=== PATIENT | male | born 1980 | race Caucasian/White ===

== ENCOUNTER 2019-11-15 21:08 | Emergency (ER) | payer OTHER ==
[~2019-11-15] VITALS: Ht 175.3 cm; Wt 108.5 kg
[2019-11-15 21:39] VITALS: BP 143/92
[2019-11-15] MEDS ORDERED: predniSONE 20 MG TABLET ONE (21:54)
[2019-11-15] MEDS ORDERED: HYDROcodone/APAP 7.5/325MG 1 TAB TABLET ONE (21:54)
[2019-11-15] MEDS ORDERED: PRED20TA PO (21:55)
[2019-11-15] MEDS ORDERED: HYDR-3165 PO (21:55)
--- NOTE | 2019-11-15 21:55 | PHYS DOC ---
Adult General Chief Complaint Chief Complaint: LOWER BACK PAIN OR INJURY [facility] 39-year-old male presents with upper lumbar back pain. The patient is a long history of pain. He has bulging disks. He sees pain management at . He had injections 2 weeks ago. He was feeling much better for a little over a week. Over the last 3 days, he has had increasing pain again. He continues to take his Flexeril but it is not helping. He didn't go to physical therapy today and since that time his pain has been more difficult to bear. The patient cannot take NSAIDs due to gastric ulcers. He does take Tylenol. He is getting some radiation of the pain down the backs of both legs. He denies numbness or loss of sensation. He denies any trauma or falls. Review of Systems Review of Systems Constitutional: Denies fever or chills [] Eyes: Denies change in visual acuity, redness, or eye pain [] HENT: Denies nasal congestion or sore throat [] Respiratory: Denies cough or shortness of breath [] Cardiovascular: No additional information not addressed in HPI [] GI: Denies abdominal pain, nausea, vomiting, bloody stools or diarrhea [] : Denies dysuria or hematuria [] Musculoskeletal: Back pain[] Integument: Denies rash or skin lesions [] Neurologic: Denies headache, focal weakness or sensory changes [] Endocrine: Denies polyuria or polydipsia [] All other systems were reviewed and found to be within normal limits, except as documented in this note. Physical Exam Physical Exam Constitutional: Well developed, well nourished, no acute distress, non-toxic appearance. [] HENT: Normocephalic, atraumatic, bilateral external ears normal, oropharynx moist, no oral exudates, nose normal. [] Eyes: PERRLA, EOMI, conjunctiva normal, no discharge. [] Neck: Normal range of motion, no tenderness, supple, no stridor. [] Cardiovascular:Heart rate regular rhythm, no murmur [] Lungs & Thorax: Bilateral breath sounds clear to auscultation [] Abdomen: Bowel sounds normal, soft, no tenderness, no masses, no pulsatile masses. [] Skin: Warm, dry, no erythema, no rash. [] Back: Mild tenderness and muscle spasm of the paraspinal muscles of the upper lumbar[] Extremities: No tenderness, no cyanosis, no clubbing, ROM intact, no edema. [] Neurologic: Alert and oriented X 3, normal motor function, normal sensory function, no focal deficits noted. [] Psychologic: Affect normal, judgement normal, mood normal. [] EKG EKG [] Radiology/Procedures Radiology/Procedures [] Course & Med Decision Making Course & Med Decision Making Pertinent Labs and Imaging studies reviewed. (See chart for details) I reviewed the narcotic tracking database and the patient does not have a record. Does seem to be uncomfortable. I will treat him with Cameron in the ED as well as prednisone orally. I will discharge him with a short course of Cameron 5/325 as well as 3 more days of prednisone. He will follow-up with this pain management physicians next week. He is stable for discharge at this time. [] Dragon Disclaimer Dragon Disclaimer This electronic medical record was generated, in whole or in part, using a voice recognition dictation system. Departure Departure: Impression: Primary Impression: Lumbar back pain with radiculopathy affecting lower extremity Disposition: 01 HOME, SELF-CARE Condition: STABLE Referrals: SAUL WOLFE DO (PCP) Patient Instructions: Low Back Strain with Rehab-[facility] Scripts Prednisone (PREDNISONE) 20 Mg Tablet 60 MG PO DAILY for lumbar pain with radiculopathy for 3 Days, #9 TAB Prov: JAMILA MORRIS DO 11/15/19 Hydrocodone Bit/Acetaminophen (NORCO 5-325 TABLET) 1 Each Tablet 1 TAB PO PRN Q6HRS PRN for PAIN, #14 TAB 0 Refills Prov: JAMILA MORRIS DO 11/15/19 JAMILA MORRIS DO Nov 15, 2019 21:55
[2019-11-15] MEDS ORDERED: HYDROcodone/APAP 7.5/325MG 1 TAB TABLET PO ONE (22:00)
[2019-11-15] MEDS ORDERED: predniSONE 20 MG TABLET PO ONE (22:00)
== END 2019-11-15 22:05 | disposition home or self-care (01) ==
LOC: ER 21:08
DX: M54.16 Radiculopathy, lumbar region (principal)
CPT/HCPCS: 99283; J7512

== ENCOUNTER 2020-05-29 07:29 | Emergency (ER) | payer OTHER ==
[~2020-05-29] VITALS: Ht 175.3 cm; Wt 111.5 kg
[2020-05-29 07:29] VITALS: BP 137/87
[~2020-05-29 07:29] MED LIST: HYDR-3165 PO; PRED20TA PO
[2020-05-29] MEDS ORDERED: NAPR500T8 PO (08:00)
--- NOTE | 2020-05-29 08:00 | PHYS DOC ---
Past History Past Medical History: Arthritis, GERD, Hypertension Additional Past Medical Histor: 3 buling Disc T11-L4, anular tear, DJD Additional Past Surgical Histo: Right shoulder repair Alcohol Use: None General Adult EDM: Chief Complaint: UPPER EXTREMITY PAIN HPI: HPI: The history was obtained from the patient. Patient is a 39-year-old male with PMH arthritis who presents with a chief complaint of right elbow pain and swelling. Patient states he began developing some minor right elbow pain yesterday. He states this morning he woke up and noted to be somewhat red and swollen. Denies any trauma or injury. 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 Denies any IV drug use. Denies any drainage from the elbow. Denies any trauma or injury. Denies shoulder or wrist pain. States the pain is aching in nature and constant. States it is made slightly worse with movement. No other complaints. Review of Systems: Review of Systems: Constitutional: Denies fever or chills Eyes: Denies change in visual acuity HENT: Denies nasal congestion or sore throat Respiratory: Denies cough or shortness of breath Cardiovascular: Denies chest pain or edema GI: Denies abdominal pain, nausea, vomiting, bloody stools or diarrhea : Denies dysuria Musculoskeletal: Positive for elbow pain Integument: Denies rash Neurologic: Denies headache, focal weakness or sensory changes Endocrine: Denies polyuria or polydipsia Lymphatic: Denies swollen glands Psychiatric: Denies depression or anxiety Heart Score: Risk Factors: Risk Factors: DM, Current or recent (<one month) smoker, HTN, HLP, family history of CAD, obesity. Risk Scores: Score 0 - 3: 2.5% MACE over next 6 weeks - Discharge Home Score 4 - 6: 20.3% MACE over next 6 weeks - Admit for Clinical Observation Score 7 - 10: 72.7% MACE over next 6 weeks - Early Invasive Strategies Physical Exam: PE: Constitutional: Well developed, well nourished, no acute distress, non-toxic appearance. [] HENT: Normocephalic, atraumatic, bilateral external ears normal, oropharynx moist, no oral exudates, nose normal. [] Eyes: PERRLA, EOMI, conjunctiva normal, no discharge. [] Neck: Normal range of motion, no tenderness, supple, no stridor. [] Cardiovascular:Heart rate regular rhythm, no murmur [] Lungs & Thorax: Bilateral breath sounds clear to auscultation [] Abdomen: soft, no tenderness, no masses, no pulsatile masses. [] Skin: Warm, dry, no erythema, no rash. [] Back: No tenderness, no CVA tenderness. [] Extremities: Right elbow with inflamed olecranon bursa. Mild increase in warmth. Mild overlying erythema. Mild palpable area of fluctuance. No shoulder or wrist tenderness. Plus 2 out of 4 radial pulse on the right. Cardinal hand movements intact. No limitations in active or passive range of motion. Neurologic: Alert and oriented X 3, normal motor function, normal sensory function, no focal deficits noted. [] Psychologic: Affect normal, judgement normal, mood normal. [] EKG: EKG: [] Radiology/Procedures: Radiology/Procedures: [] Course & Med Decision Making: Course & Med Decision Making Pertinent Labs and Imaging studies reviewed. (See chart for details) [] Patient is a well-appearing 39-year-old male who presents with complaint of right elbow swelling tenderness. Atraumatic in nature. Clinically patient has signs and symptoms concerning for olecranon bursitis. No signs of overlying infection. Low suspicion for septic joint as he does have full active and passive range of motion without difficulty. Plain film imaging will be deferred as there is no history of trauma or injury. He was counseled on appropriate supportive care measures at home. Instructed to follow-up with his primary care physician in the next 2 to 3 days. Return precautions discussed and understood. Stable for discharge home. Palma Disclaimer: Palma Disclaimer: This electronic medical record was generated, in whole or in part, using a voice recognition dictation system. Departure Departure: Impression: Primary Impression: Olecranon bursitis Qualified Codes: M70.21 - Olecranon bursitis, right elbow Disposition: 01 HOME/RESIDENCE PRIOR TO ADM Condition: STABLE Referrals: SAUL WOLFE DO (PCP) Patient Instructions: Olecranon Bursitis Scripts Naproxen (NAPROXEN) 500 Mg Tablet.dr 1 TAB PO BID for pain for 10 Days, #20 TAB 2 Refills Prov: OSWALD HARVEY DO 05/29/20 Justification of Admission: Justification of Admission: Justification of Admission Dx: N/A OSWALD HARVEY DO May 29, 2020 08:00
== END 2020-05-29 08:05 | disposition home or self-care (01) ==
LOC: ER 07:29
DX: M70.21 Olecranon bursitis, right elbow (principal); M19.90 Unspecified osteoarthritis, unspecified site; K21.9 Gastro-esophageal reflux disease without esophagitis; I10 Essential (primary) hypertension
CPT/HCPCS: 99282

== ENCOUNTER 2020-12-21 18:37 | Emergency (ER) | payer OTHER ==
[~2020-12-21] VITALS: Ht 182.9 cm; Wt 111.5 kg
[~2020-12-21 18:37] MED LIST changes: +NAPR500T8 PO
--- NOTE | 2020-12-21 18:41 | PHYS DOC ---
Past History Past Medical History: Arthritis, GERD, Hypertension Additional Past Medical Histor: 3 buling Disc T11-L4, anular tear, DJD Additional Past Surgical Histo: Right shoulder repair Alcohol Use: None General Adult HPI: HPI: ".. I caught this finger on brick plate.. and ripped it open... 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 4th dosal 2nd joint finger injury. Patient's tetanus is less than 5 years. Patient is right-hand dominant. Distal neurovascular is equal to other fingers on right hand and left hand. Pt. follows with Dr. Shafer at [facility]. No recent travel. No specific ill contacts. Normally healthy. Patient does have a history of past gastric ulcers due to NSAIDs. Does have history of lumbar degenerative joint changes and disc disease. Patient does have history of periodic episodes of sciatica. No history of immunosuppression. Review of Systems: Review of Systems: Constitutional: Denies fever or chills Eyes: Denies change in visual acuity HENT: Denies nasal congestion or sore throat Respiratory: Denies cough or shortness of breath Cardiovascular: Denies chest pain or edema GI: Denies abdominal pain, nausea, vomiting, bloody stools or diarrhea : Denies dysuria Musculoskeletal: Denies back pain or joint pain Integument: Denies rash. Complains of laceration ring finger right Neurologic: Denies headache, focal weakness or sensory changes Endocrine: Denies polyuria or polydipsia Lymphatic: Denies swollen glands Psychiatric: Denies depression or anxiety Family History: Family History: Noncontributory to presentation Current Medications: Current Meds: See nursing for home meds Allergies: Allergies: Allergies Coded Allergies Type Severity Reaction Last Updated Verified NSAIDS (Non-Steroidal Anti-Inflamma Allergy Unknown GERD 05/29/20 Yes Physical Exam: PE: Constitutional: Well developed, well nourished, no acute distress, non-toxic appearance. [] HENT: Normocephalic, atraumatic, bilateral external ears normal, oropharynx moist, no oral exudates, nose normal. [] Eyes: PERRLA, EOMI, conjunctiva normal, no discharge. [] Neck: Normal range of motion, no tenderness, supple, no stridor. [] Cardiovascular:Heart rate regular rhythm, no murmur [] Lungs & Thorax: Bilateral breath sounds clear to auscultation [] Abdomen: Bowel sounds normal, soft, no tenderness, no masses, no pulsatile masses. [] Skin: Warm, dry, no erythema, no rash. [] Laceration to right fourth ring finger dorsal. Back: No tenderness, no CVA tenderness. [] Extremities: No tenderness, no cyanosis, no clubbing, ROM intact, no edema. [] Neurologic: Alert and oriented X 3, normal motor function, normal sensory function, no focal deficits noted. [] Psychologic: Affect normal, judgement normal, mood normal. [] EKG: EKG: [] Radiology/Procedures: Radiology/Procedures: [] Heart Score: C/O Chest Pain: N/A Risk Factors: Risk Factors: DM, Current or recent (<one month) smoker, HTN, HLP, family history of CAD, obesity. Risk Scores: Score 0 - 3: 2.5% MACE over next 6 weeks - Discharge Home Score 4 - 6: 20.3% MACE over next 6 weeks - Admit for Clinical Observation Score 7 - 10: 72.7% MACE over next 6 weeks - Early Invasive Strategies Course & Med Decision Making: Course & Med Decision Making Pertinent Labs and Imaging studies reviewed. (See chart for details) Procedure note- options of treatment discussed with patient.-Elects suturing with Vicryl. Patient's finger cleaned with saline and Betadine. Patient did prolonged washing under tap water with soap and water. Injected 2% lidocaine digital block and localized injection at laceration site. Then scrubbed laceration with surgical brush. Lightly trimmed edge of laceration to remove abraded tissue. Irrigated with a liter of normal saline under pressure and range of motion.. Close laceration with Vicryl 4-0 x6 simple sutures. Applied back to duration to wound and dressing. Patient keep laceration clean and dry. If it becomes wet remove dressing immediately. May wear current dressing for the next 3 days. However becomes wet must be removed immediately. After removal of this dressing patient to apply Polysporin 4 times a day. Patient follow-up primary care. Patient monitor for infection. Patient return if any concerns. Impression: 1. 2 cm Laceration Rt. 4 th finger [] Palma Disclaimer: Palma Disclaimer: This electronic medical record was generated, in whole or in part, using a voice recognition dictation system. Departure Departure: Referrals: SAUL WOLFE DO (PCP) Palma Disclaimer This chart was dictated in whole or in part using Voice Recognition software in a busy, high-work load, and often noisy Emergency Department environment. It may contain unintended and wholly unrecognized errors or omissions. SHELTON WERNER MD Dec 21, 2020 18:41
[2020-12-21] MEDS ORDERED: LIDOCAINE 2% 20 ML VIAL. ONE (18:48)
[2020-12-21] MEDS ORDERED: LIDOCAINE 2% 20 ML VIAL. IJ ONE (19:00)
[2020-12-21] MEDS ORDERED: BACITRACIN ZINC TOPICAL OINT PACKET. TP ONE (19:00)
[2020-12-21 19:15] VITALS: BP 142/92
== END 2020-12-21 19:45 | disposition home or self-care (01) ==
LOC: ER 18:37
DX: S61.214A Laceration without foreign body of right ring finger without damage to nail, initial encounter (principal); K21.9 Gastro-esophageal reflux disease without esophagitis; I10 Essential (primary) hypertension; Z88.8 Allergy status to other drugs, medicaments and biological substances; W23.0XXA Caught, crushed, jammed, or pinched between moving objects, initial encounter; Y93.89 Activity, other specified; Y92.89 Other specified places as the place of occurrence of the external cause; Y99.8 Other external cause status
CPT/HCPCS: 12001; 99283; J2001

== ENCOUNTER 2021-02-11 04:58 | Emergency (ER) | payer OTHER ==
--- NOTE | 2021-02-22 07:41 | PHYS DOC ---
Past History Past Medical History: Arthritis, GERD, Hypertension Additional Past Medical Histor: 3 buling Disc T11-L4, anular tear, DJD Past Surgical History: Other Additional Past Surgical Histo: Right shoulder repair Alcohol Use: None General Adult HPI: HPI: ".. I get back spasms.. I usually take some muscle relaxers like Robaxin.....but that does not seem to be helping..." Patient is a 40 year old male who presents with mid back pain and some muscle spasms in T-7 maru. Patient states he had no relief of pain after taking T3's and Robaxin. Review of Systems: Review of Systems: Constitutional: Denies fever or chills Eyes: Denies change in visual acuity HENT: Denies nasal congestion or sore throat Respiratory: Denies cough or shortness of breath Cardiovascular: Denies chest pain or edema GI: Denies abdominal pain, nausea, vomiting, bloody stools or diarrhea : Denies dysuria Musculoskeletal: Complains of mid back pain and spasm or joint pain Integument: Denies rash Neurologic: Denies headache, focal weakness or sensory changes Endocrine: Denies polyuria or polydipsia Lymphatic: Denies swollen glands Psychiatric: Denies depression or anxiety Family History: Family History: Noncontributory presentation Allergies: Allergies: Allergies Coded Allergies Type Severity Reaction Last Updated Verified NSAIDS (Non-Steroidal Anti-Inflamma Allergy Unknown GERD 05/29/20 Yes Physical Exam: PE: Constitutional: Well developed, well nourished, no acute distress, non-toxic appearance. [] HENT: Normocephalic, atraumatic, bilateral external ears normal, oropharynx moist, no oral exudates, nose normal. [] Eyes: PERRLA, EOMI, conjunctiva normal, no discharge. [] Neck: Normal range of motion, no tenderness, supple, no stridor. [] Cardiovascular:Heart rate regular rhythm, no murmur [] Lungs & Thorax: Bilateral breath sounds clear to auscultation [] Abdomen: Bowel sounds normal, soft, no tenderness, no masses, no pulsatile masses. [] Skin: Warm, dry, no erythema, no rash. [] Back: Mid back tenderness and muscle spasm, no specific CVA tenderness. [] Extremities: No tenderness, no cyanosis, no clubbing, ROM intact, no edema. Scar right shoulder Neurologic: Alert and oriented X 3, normal motor function, normal sensory function, no focal deficits noted. [] Psychologic: Affect normal, judgement normal, mood normal. [] EKG: EKG: [] Radiology/Procedures: Radiology/Procedures: [] Heart Score: C/O Chest Pain: N/A Risk Factors: Risk Factors: DM, Current or recent (<one month) smoker, HTN, HLP, family history of CAD, obesity. Risk Scores: Score 0 - 3: 2.5% MACE over next 6 weeks - Discharge Home Score 4 - 6: 20.3% MACE over next 6 weeks - Admit for Clinical Observation Score 7 - 10: 72.7% MACE over next 6 weeks - Early Invasive Strategies Course & Med Decision Making: Course & Med Decision Making Pertinent Labs and Imaging studies reviewed. (See chart for details) Patient use ice packs as needed. Gentle massage. Take Tylenol as needed for pain. Follow-up with [facility]. Return if any concerns. Impression: 1. Trapezius spasm [] Palma Disclaimer: Palma Disclaimer: This electronic medical record was generated, in whole or in part, using a voice recognition dictation system. Departure Departure: Impression: Primary Impression: Muscle spasm Disposition: HOME / SELF CARE / HOMELESS Condition: GUARDED Referrals: SAUL WOLFE DO (PCP) Palma Disclaimer This chart was dictated in whole or in part using Voice Recognition software in a busy, high-work load, and often noisy Emergency Department environment. It may contain unintended and wholly unrecognized errors or omissions. SHELTON WERNER MD Feb 22, 2021 07:41
== END 2021-02-11 05:30 | disposition home or self-care (01) ==
LOC: ER 04:58
DX: M62.830 Muscle spasm of back (principal); M54.89 Other dorsalgia; M19.90 Unspecified osteoarthritis, unspecified site; K21.9 Gastro-esophageal reflux disease without esophagitis; I10 Essential (primary) hypertension; Z88.6 Allergy status to analgesic agent
CPT/HCPCS: 99281; 99282

== ENCOUNTER 2021-05-04 11:18 | Emergency (ER) | payer OTHER ==
[~2021-05-04] VITALS: Ht 182.9 cm; Wt 111.5 kg
[2021-05-04 11:46] VITALS: BP 160/97
[2021-05-04] MEDS ORDERED: KETOROLAC 15 MG/ML VIAL. IM ONE (12:15)
[2021-05-04] MEDS ORDERED: CYCLOBENZAPRINE 10 MG TABLET. PO ONE (12:15)
--- NOTE | 2021-05-04 12:22 | PHYS DOC ---
Past History Past Medical History: Arthritis, GERD, Hypertension Additional Past Medical Histor: 3 buling Disc T11-L4, anular tear, DJD (SHERMAN GRAY APRN) Past Surgical History: Other Additional Past Surgical Histo: Right shoulder repair (SHERMAN GRAY APRN) Alcohol Use: None (SHERMAN GRAY APRN) General Adult EDM: Chief Complaint: BACK PAIN - NO INJURY HPI: HPI: Patient is a 40-year-old male presents with lower back pain. Patient states he has a history of chronic back pain. Patient states he try to get into his PCP this morning but was unable to obtain an appointment. Denies taking anything for discomfort. Denies new injury. Denies urinary retention or loss of bowel. (SHERMAN GRAY APRN) Review of Systems: Review of Systems: Constitutional: Denies fever or chills Eyes: Denies change in visual acuity HENT: Denies nasal congestion or sore throat Respiratory: Denies cough or shortness of breath Cardiovascular: Denies chest pain or edema GI: Denies abdominal pain, nausea, vomiting, bloody stools or diarrhea : Denies dysuria Musculoskeletal: Reports lower back pain Integument: Denies rash Neurologic: Denies headache, focal weakness or sensory changes Endocrine: Denies polyuria or polydipsia Lymphatic: Denies swollen glands Psychiatric: Denies depression or anxiety (SHERMAN GRAY APRN) Allergies: Allergies: Allergies Coded Allergies Type Severity Reaction Last Updated Verified NSAIDS (Non-Steroidal Anti-Inflamma Allergy Unknown GERD 05/29/20 Yes (SHERMAN GRAY APRN) Physical Exam: PE: Constitutional: Well developed, well nourished, no acute distress, non-toxic appearance. [] HENT: Normocephalic, atraumatic, bilateral external ears normal, oropharynx moist, no oral exudates, nose normal. [] Eyes: PERRLA, EOMI, conjunctiva normal, no discharge. [] Neck: Normal range of motion, no tenderness, supple, no stridor. [] Cardiovascular:Heart rate regular rhythm, no murmur [] Lungs & Thorax: Bilateral breath sounds clear to auscultation [] Abdomen: Bowel sounds normal, soft, no tenderness, no masses, no pulsatile masses. [] Skin: Warm, dry, no erythema, no rash. [] Back: Lower back tenderness, no CVA tenderness. [] Extremities: No tenderness, no cyanosis, no clubbing, ROM intact, no edema. [] Neurologic: Alert and oriented X 3, normal motor function, normal sensory function, no focal deficits noted. [] Psychologic: Affect normal, judgement normal, mood normal. [] (SHERMAN GRAY APRN) Current Patient Data: Vital Signs: Vital Signs Date Time Temp Pulse Resp B/P (MAP) Pulse Ox O2 Delivery O2 Flow Rate FiO2 05/04/21 11:46 98.8 72 14 160/97 99 Room Air (SHERMAN GRAY APRN) EKG: EKG: [] (SHERMAN GRAY APRN) Radiology/Procedures: Radiology/Procedures: [] (SHERMAN GRAY APRN) Heart Score: C/O Chest Pain: No Risk Factors: Risk Factors: DM, Current or recent (<one month) smoker, HTN, HLP, family history of CAD, obesity. Risk Scores: Score 0 - 3: 2.5% MACE over next 6 weeks - Discharge Home Score 4 - 6: 20.3% MACE over next 6 weeks - Admit for Clinical Observation Score 7 - 10: 72.7% MACE over next 6 weeks - Early Invasive Strategies (SHERMAN GRAY APRN) Course & Med Decision Making: Course & Med Decision Making Pertinent Labs and Imaging studies reviewed. (See chart for details) [] 40-year-old male presents with lower back pain. Patient has history of chronic back pain. Patient states that he has pain radiating down his right leg. Denies urinary retention or loss of bowel. Patient given IM Toradol and Flexeril while in the ED. Patient sent home with prescription for Flexeril. Patient given strict return precautions. Patient is able to ambulate on his own. Patient is hemodynamically stable. (SHERMAN GRAY APRN) Course & Med Decision Making I was the Attending physician on the above date of service of this patient. This patient was evaluated, examined, treated, and dispositioned from the emergency department by the mid-level practitioner. Although I was working at the time , no assistance was requested. Electronically signed, Mariama Johnson DO (MARIAMA JOHNSON DO) Palma Disclaimer: Palma Disclaimer: This electronic medical record was generated, in whole or in part, using a voice recognition dictation system. (SHERMAN GRAY APRN) Departure Departure: Impression: Primary Impression: Chronic lower back pain Qualified Codes: M54.41 - Lumbago with sciatica, right side; G89.29 - Other chronic pain Additional Impression: Sciatica Qualified Codes: M54.31 - Sciatica, right side Referrals: SAUL WOLFE DO (PCP) Patient Instructions: Sciatica, [id number] Additional Instructions: You are seen in the emergency room for lower back pain. You were given Toradol and Flexeril in the ER. I am sending you home with a prescription for Flexeril as well. Please follow-up with your PCP. Return to emergency room if you have worsening symptoms or concerns peer EMERGENCY DEPARTMENT GENERAL DISCHARGE INSTRUCTIONS Thank you for coming to [facility] (ED) today and trusting us with you care. We trust that you had a positivie experience in our Emergency Department. If you wish to speak to the department management, you may call the director at [phone]. YOUR FOLLOW UP INSTRUCTIONS ARE FOLLOWS: 1. Do you have a private Doctor? If you do not have a private doctor, please ask for a resource list of physicians or clinics that may be able to assist you with follow up care. 2. The Emergency Physician has interpreted your x-rays. The X-Ray specialist will also review them. If there is a change in the findings, you will be notified in 48 hours when at all possible. 3. A lab test or culture has been done, your results will be reviewed and you w ill be notified if you need a change in treatment. ADDITIONAL INSTRUCTIONS AND INFORMATION: 1. Your care today has been supervised by a physician who is specially trained in emergency care. Many problems require more than one evaluation for a complete diagnosis and treatment. We recommend that you schedule your follow up appointment as recommended to ensure complete treatment of you illness or injury. If you are unable to obtain follow up care and continue to have a problem, or if your condition worsens, we recommend that you return to the ED. 2. We are not able to safely determine your condition over the phone nor are we able to give sound medical advice over the phone. For these safety reasons, if you call for medical advice we will ask you to come to the ED for further evaluation. 3. If you have any questions regarding these discharge instructions please call the ED at [phone]. SAFETY INFORMATION: In the interest of safety, wellness, and injury prevention; we encourage you to wear your sealbelt, if you smoke; quite smoking, and we encourage family to use a protective helmet for bicycling and other sporting events that present an increased risk for head injury. IF YOUR SYMPTOMS WORSEN OR NEW SYMPTOMS DEVELOP, OR YOU HAVE CONCERNS ABOUT YOUR CONDITION; OR IF YOUR CONDITION WORSENS WHILE YOU ARE WAITING FOR YOUR FOLLOW UP APPOINTMENT; EITHER CONTACT YOUR PRIMARY CARE DOCTOR, THE PHYSICIAN WHOSE NAME AND NUMBER YOU WERE GIVEN, OR RETURN TO THE ED IMMEDIATELY. Scripts Cyclobenzaprine Hcl (CYCLOBENZAPRINE HCL) 10 Mg Tablet 1 TAB PO TID PRN for PAIN for 10 Days, #30 TAB 0 Refills Prov: SHERMAN GRAY APRN 05/04/21 SHERMAN GRAY APRN May 04, 2021 12:22 MARIAMA JOHNSON DO May 05, 2021 13:05
[2021-05-04] MEDS ORDERED: CYCL-331 PO (12:24)
== END 2021-05-04 13:04 | disposition home or self-care (01) ==
LOC: ER 11:18
DX: M54.41 Lumbago with sciatica, right side (principal); G89.29 Other chronic pain; M19.90 Unspecified osteoarthritis, unspecified site; K21.9 Gastro-esophageal reflux disease without esophagitis; I10 Essential (primary) hypertension; Z88.6 Allergy status to analgesic agent
CPT/HCPCS: 96372; 99283; J1885

== ENCOUNTER 2021-09-16 11:49 | Emergency (ER) | payer OTHER ==
[~2021-09-16] VITALS: Ht 182.9 cm; Wt 111.5 kg
[~2021-09-16 11:49] MED LIST changes: +CYCL10TA19 PO
[2021-09-16 11:50] VITALS: BP 160/97
[2021-09-16 14:09] LABS: INFLUENZA A PATIENT NEGATIVE (NEGATIVE); INFLUENZA B PATIENT NEGATIVE (NEGATIVE)
[2021-09-16] MEDS ORDERED: CYCL10TA19 PO (14:22)
[2021-09-16] MEDS ORDERED: METH4TAB2 PO (14:22)
--- NOTE | 2021-09-16 14:23 | PHYS DOC ---
Past History Past Medical History: Arthritis, GERD, Hypertension Additional Past Medical Histor: 3 buling Disc T11-L4, anular tear, DJD (JOANNE BORDEN APRN) Past Surgical History: Other Additional Past Surgical Histo: Right shoulder repair (JOANNE BORDEN APRN) Alcohol Use: None (JOANNE BORDEN APRN) Adult General Chief Complaint Chief Complaint: BACK PAIN OR INJURY HPI HPI Patient is a 40-year-old male presents Emergency Department complaining of right-sided mid back spasms that started yesterday. Patient reports a history of back spasms, states he takes Robaxin and Tylenol 3 at home to control these symptoms. Patient reports when he has breakthrough pain suggest today he comes to the hospital for a prescription of Flexeril and Medrol Dosepak which is seems to help his symptoms. Patient is also requesting a work excuse for today and tomorrow. Patient denies acutely injuring his back, denies loss of bowel bladder control, denies urinary retention, denies numbness or tingling down his extremities, patient does report his 2 daughters living in his home are positive for the flu virus. Patient states he has not received the COVID-19 or flu virus vaccine. Patient denies other physical complaints or physical concerns. (JOANNE BORDEN APRN) Review of Systems Review of Systems 14 body systems of review of systems have been reviewed. See HPI for pertinent positives and negative responses, otherwise all other systems are negative, nonpertinent or noncontributory. Constitutional: Negative except as outlined in HPI above. Skin: Negative except as outlined in HPI above. Eyes: Negative except as outlined in HPI above. HENT: Negative except as outlined in HPI above. Respiratory: Negative except as outlined in HPI above. Cardiovascular: Negative except as outlined in HPI above. GI: Negative except as outlined in HPI above. : Negative except as outlined in HPI above. Musculoskeletal: Negative except as outlined in HPI above. Integument: Negative except as outlined in HPI above. Neurologic: Negative except as outlined in HPI above. Endocrine: Negative except as outlined in HPI above. Lymphatic: Negative except as outlined in HPI above. Psychiatric: Negative except as outlined in HPI above. (JOANNE BORDEN APRN) Allergies Allergies Allergies Coded Allergies Type Severity Reaction Last Updated Verified NSAIDS (Non-Steroidal Anti-Inflamma Allergy Unknown GERD 05/29/20 Yes (JOANNE BORDEN APRN) Physical Exam Physical Exam Constitutional: Well developed, well nourished, no acute distress, non-toxic appearance. 40-year-old male in no apparent distress. HENT: Normocephalic, atraumatic. Eyes: Conjunctiva normal, no discharge. Neck: Normal range of motion, no stridor. Cardiovascular: No cyanosis appreciated, distal cap refill less than 2 seconds. Lungs & Thorax: Patient is in no respiratory distress, no audible adventitious lung sounds appreciated. Lung sounds clear to auscultate all lung jackson. Abdomen: Nontender, no abnormalities noted. Skin: Warm, dry, no erythema, no rash. Back: No deformities appreciated, no midline spinal tenderness appreciated, no lumbar muscular structure pain appreciated, paraspinal muscular pain to palpation on the right. No crepitus, no ecchymosis or skin discoloration appreciated with the back. Extremities: No tenderness, no cyanosis, no clubbing, ROM intact, no edema. 5/5 motor strength with hip flexion, knee flexion,extension, knee adduction, plantar/dorsiflexion at the ankle, and dorsiflexion of the toe bilaterally. Neurologic: Alert and oriented X 3, normal motor function, normal sensory function, no focal deficits noted. Psychologic: Affect normal, judgement normal, mood normal. (JOANNE BORDEN APRN) Current Patient Data Lab Results Laboratory Tests Test 09/16/21 13:30 Influenza Type A (Rapid) Negative (NEGATIVE) Influenza Type B (Rapid) Negative (NEGATIVE) (JOANNE BORDEN APRN) EKG EKG [] (JOANNE BORDEN APRN) Radiology/Procedures Radiology/Procedures [] (JOANNE BORDEN APRN) Heart Score C/O Chest Pain: No Risk Factors: Risk Factors: DM, Current or recent (<one month) smoker, HTN, HLP, family history of CAD, obesity. Risk Scores: Risk Factors: DM, Current or recent (<one month) smoker, HTN, HLP, family history of CAD, obesity. (JOANNE BORDEN APRN) Course & Med Decision Making Course & Med Decision Making Pertinent Labs and Imaging studies reviewed. (See chart for details) 40-year-old male, vital signs reviewed, presents emergency department concerning exacerbation of chronic back pains. Physical examination concerning for paraspinal muscular spasms. Related to patient exposure to the flu virus without flu vaccine, will order rapid flu A/B testing. Rapid flu negative. Discussed with patient we will prescribe Flexeril pain medication, Medrol Dosepak, will give work excuse for today and tomorrow. Strict follow-up with primary care soon, return to ER precautions and concerns were reviewed. Patient gave verbal understanding and is amenable to ED disch arge planning. Discussed with the patient all findings and diagnostic testing as well as the need to follow-up with their primary care provider for further evaluation and treatment or return to the ED if any new or worsening symptoms. Strict return precautions were also discussed at length, the patient voiced understanding and agreement with the discharge planning. The patient was nontoxic in appearance, in no apparent distress, and hemodynamically stable at the time of disposition. (JOANNE BORDEN APRN) Dragon Disclaimer Dragon Disclaimer This electronic medical record was generated, in whole or in part, using a voice recognition dictation system. (JOANNE BORDEN APRN) Attending Co-Sign The patient was seen and interviewed as well as examined at the bedside. The chart was reviewed. The case was discussed. Agree with the plan of care. (JAMILA MORRIS DO) Departure Departure: Impression: Primary Impression: Back pain Disposition: 01 HOME / SELF CARE / HOMELESS Condition: GOOD Referrals: SAUL WOLFE DO (PCP) Patient Instructions: Back Pain, Adult Additional Instructions: You were seen today in the emergency department for acute back pain. I have prescribed for you Flexeril muscle relaxer and a Medrol Dosepak. Please do not operate or drive or handle dangerous machinery or objects while taking the muscle relaxer. Follow-up with your primary care soon for ongoing pain management. Return to the emergency department for worsening symptoms or other concerns. Your flu testing is negative today. Thank you for visiting our Emergency Department. It was a pleasure taking care of you today in the emergency department and we appreciate you trusting us with your care. If any additional problems come up don't hesitate to return to visit us. Please follow up with your primary care provider so they can plan additional care if needed and know about the problem that you had. If symptoms worsen come back to the Emergency Department. Any concerning symptoms that start such as chest pain, lizet rtness of air, weakness or numbness on one side of the body, running high fevers or any other concerning symptoms return to the ER. Scripts Methylprednisolone (MEDROL) 4 Mg Tab.ds.pk 1 PKG PO UD for back spasms, #1 PKG 0 Refills Prov: JOANNE BORDEN APRN 09/16/21 Cyclobenzaprine Hcl (CYCLOBENZAPRINE HCL) 10 Mg Tablet 1 TAB PO TID for back spasms, #30 TAB 0 Refills Prov: JOANNE BORDEN APRN 09/16/21 Problem Qualifiers Primary Impression: Back pain Back pain location: thoracic back pain Chronicity: chronic Back pain laterality: right Qualified Codes: M54.6 - Pain in thoracic spine; G89.29 - Other chronic pain JOANNE BORDEN APRN Sep 16, 2021 14:22 JAMILA MORRIS DO Sep 17, 2021 07:27
== END 2021-09-16 14:25 | disposition home or self-care (01) ==
LOC: ER 11:49
DX: M54.6 Pain in thoracic spine (principal); G89.29 Other chronic pain; M62.830 Muscle spasm of back; M19.90 Unspecified osteoarthritis, unspecified site; K21.9 Gastro-esophageal reflux disease without esophagitis; I10 Essential (primary) hypertension; Z88.6 Allergy status to analgesic agent
CPT/HCPCS: 87804; 99283